=== PATIENT | female | born 1945 | race Caucasian/White ===

== ENCOUNTER → 2016-10-12 | Outpatient (CLI) | payer OTHER, BC ==
--- NOTE | 2016-10-12 16:49 | MA ---
Screening Digital Mammogram With iCAD Analysis Clinical Indications: Routine screening. Maternal grandmother was diagnosed with breast cancer in her 50s. The patient has had a previous benign breast biopsy. Technique: Standard cephalocaudal and mediolateral oblique projections are obtained. The examination is processed by the iCAD computer-aided detection system. Comparison: April 2016, October 2015, September 2014, August 2013, July 2013. Breast density: Type C; Heterogeneously dense. Findings: CAD was reviewed. There are no masses, suspicious calcifications or other signs of malignan cy. There has been no significant change in the appearance of either breast. Vascular calcifications are noted. Impression: Negative mammogram. BI-RADS 1. Recommendation: Routine screening in one year, as long as physical examination is benign, in this pat ient with heterogeneously dense breast parenchyma. [facility] will send a result letter to the patient. Dense breast parenchyma diminishes mammographic sensitivity. Negative mammography should not preclude additional workup of a clinically suspicious finding. The patient's information is entered into a reminder system with a target due date for her next mammo gram.
== END ==
LOC: BMCIMAGING 14:16
DX: Z12.31 Encounter for screening mammogram for malignant neoplasm of breast (principal); Z80.3 Family history of malignant neoplasm of breast
CPT/HCPCS: G0202

== ENCOUNTER → 2017-10-13 | Outpatient (CLI) | payer OTHER, BC | LOC: BMCIMAGING 13:18 | PROVIDERS: ATTEND Internal Medicine | DX: Z12.31 Encounter for screening mammogram for malignant neoplasm of breast (principal) ==

== ENCOUNTER → 2017-10-19 | Outpatient (CLI) | payer OTHER, BC | LOC: BMCIMAGING 09:49 | PROVIDERS: ATTEND Internal Medicine | DX: R92.8 Other abnormal and inconclusive findings on diagnostic imaging of breast (principal) ==

== ENCOUNTER → 2017-11-11 | Outpatient (CLI) | payer OTHER, BC | LOC: BMCIMAGING 07:59 | PROVIDERS: ATTEND Internal Medicine Critical Care Medicine | DX: R06.82 Tachypnea, not elsewhere classified (principal) ==

== ENCOUNTER 2018-02-16 21:05 | Observation (INO) | payer OTHER, BC ==
[2018-02-16] MEDS ORDERED: ASPIRIN 81 MG CHEWABLE TAB PO ONE (21:17)
[2018-02-16] MEDS ORDERED: NS 500 ML IV ONE (21:17)
--- NOTE | 2018-02-16 21:25 | CPEKG ---
Heart Rate: 72 RR Interval: 833 P-R Interval: 192 QRSD Interval: 80 QT Interval: 376 QTC Interval: 412 P [place]: 58 QRS [place]: 22 T Wave [place]: 20 EKG Severity - NORMAL ECG - EKG Impression: SINUS RHYTHM Electronically Signed By: Marta Trevizo 16-Feb-2018 22:48:50
[2018-02-16 21:32] LABS: PLATELET COUNT 193 10^3/uL (150-400)
[2018-02-16 21:41] LABS: INR 1.04 (0.83-1.16); PROTIME(PATIENT) 13.8 SEC (12.0-15.0)
[2018-02-16 21:42] LABS: CREATINE KINASE 131 IU/L (0-156)
--- NOTE | 2018-02-16 22:19 | EDPHY ---
H & P Time Seen by Provider: 02/16/18 21:17 HPI/ROS: HPI Chest discomfort. 72-year-old female by private vehicle. She presents with complaint of chest discomfort which she describes as a squeezing sensation mid sternum which started at 8:47 p.m.. She reports that lasted about 25 min. When she got to the emergency department it had mostly resolved. By the time I got in to see here it had completely resolved. 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 She has had these pains but not as severe or as long lasting in the past. He told her that the next time she had such pain she is to go to the emergency department immediately and that we would probably admit her overnight. She denies any associated shortness of breath. ROS: Constitutional: No fever, no chills. No weakness. Eyes: No discharge. No changes in vision. ENT: No sore throat. No nasal congestion or rhinorrhea. Respiratory: No cough. No shortness of breath. Cardiac: As above, no palpitations. Gastrointestinal: No abdominal pain, no vomiting, no diarrhea. Genitourinary: No hematuria. No dysuria or increased frequency with urination. Musculoskeletal: No back pain. No neck pain. No myalgias or arthralgias. Skin: No rashes. Neurological: No headache. No focal weakness or altered sensation. Past medical history: She denies any significant past medical history. Social history: She is here by herself. Nonsmoker. No alcohol. Physical Exam: General Appearance: Alert, no distress. This patient is responding to questions appropriately and in full sentences. This patient appears well- hydrated and well-nourished. Eyes: Pupils equal and round no pallor or injection. No lid edema, erythema or injection. Respiratory: There are no retractions, lungs are clear to auscultation with good air movement bilaterally. Cardiovascular: Regular rate and rhythm. No murmur. Gastrointestinal: Abdomen is soft and nontender, no masses, bowel sounds normal. No focal tenderness at McBurney's point. No De Jesus sign. Neurological: Motor sensory function is grossly intact. Cranial nerves are normal. Gait is normal. Skin: Warm and dry, no rashes. Musculoskeletal: Neck is supple and nontender. Extremities are symmetrical. All joints range without pain or impingement. Psychiatric: No agitation. No depression. Database: EKG: EKG time is 9:22 p.m.; EKG shows a narrow complex normal sinus rhythm with a ventricular rate of 72. The SC, QRS, QT intervals are within normal limits. There are no ST-T wave changes indicative of ischemic or injury pattern. No evidence of right heart strain. Interpreted by me. Imaging: Chest x-ray AP portable; the cardiac mediastinal silhouette is unremarkable. No evidence of infiltrate or pneumothorax. No acute cardiopulmonary disease process noted. Interpreted by me. Procedures: Emergency department course: Vital signs reviewed and are normal. She was given 324 mg of chewed aspirin. EKG obtained and reviewed by myself. 10:20 p.m., patient re-evaluated. She remains chest pain-free. I discussed the results of her diagnostic workup in the emergency department. I explained that we would admit her overnight for serial troponins and provocative testing in the morning. She is in agreement. Hospitalist paged. 10:30 p.m., spoke with the on-call hospitalist. Patient accepted for admission. Patient admitted to telemetry observation in stable condition. Differential Diagnosis: The differential diagnosis on this patient includes but is not limited to acute coronary syndrome, esophageal spasm, musculoskeletal chest pain. Pulmonary embolism, aortic dissection unlikely. This represents a partial list of diagnoses considered. These considerations are based on history, physical exam , past history, reassessment and diagnostic testing. Smoking Status: Never smoked Constitutional: Initial Vital Signs Temperature (C) 36.8 C 02/16/18 21:13 Heart Rate 75 02/16/18 21:13 Respiratory Rate 20 02/16/18 21:13 Blood Pressure 123/77 H 02/16/18 21:13 O2 Sat (%) 99 02/16/18 21:13 O2 Delivery Mode Room Air Allergies/Adverse Reactions: No Known Allergies Allergy (Unverified 02/16/18 21:13) Medical Decision Making - Diagnostics Imaging Results: Imaging Impressions Chest X-Ray 02/16/18 21:18 Impression: Clear lungs. No acute process. - Data Points Laboratory Results: Laboratory Results 02/16/18 21:25 02/16/18 21:25 02/16/18 02/16/18 02/16/18 21:25 21:25 21:25 WBC 5.82 10^3/uL 10^3/uL (3.80-9.50) RBC 4.52 10^6/uL 10^6/uL (4.18-5.33) Hgb 13.7 g/dL g/dL (12.6-16.3) Hct 42.8 % % (38.0-47.0) MCV 94.7 fL fL (81.5-99.8) MCH 30.3 pg pg (27.9-34.1) MCHC 32.0 g/dL L g/dL (32.4-36.7) RDW 12.5 % % (11.5-15.2) Plt Count 193 10^3/uL 10^3/uL (150-400) MPV 10.7 fL fL (8.7-11.7) Neut % (Auto) 44.7 % % (39.3-74.2) Lymph % (Auto) 39.9 % % (15.0-45.0) [place] % (Auto) 10.3 % % (4.5-13.0) Eos % (Auto) 3.8 % % (0.6-7.6) Baso % (Auto) 1.0 % % (0.3-1.7) Nucleat RBC Rel Count 0.0 % % (0.0-0.2) Absolute Neuts (auto) 2.60 10^3/uL 10^3/uL (1.70-6.50) Absolute Lymphs (auto) 2.32 10^3/uL 10^3/uL (1.00-3.00) Absolute Monos (auto) 0.60 10^3/uL 10^3/uL (0.30-0.80) Absolute Eos (auto) 0.22 10^3/uL 10^3/uL (0.03-0.40) Absolute Basos (auto) 0.06 10^3/uL 10^3/uL (0.02-0.10) Absolute Nucleated RBC 0.00 10^3/uL 10^3/uL (0-0.01) Immature Gran % 0.3 % % (0.0-1.1) Immature Gran # 0.02 10^3/uL 10^3/uL (0.00-0.10) PT 13.8 SEC SEC (12.0-15.0) INR 1.04 (0.83-1.16) APTT 31.4 SEC SEC (23.0-38.0) D-Dimer 0.27 ug/mLFEU ug/mLFEU (0.00-0.50) Sodium 140 mEq/L mEq/L (135-145) Potassium 4.8 mEq/L mEq/L (3.3-5.0) Chloride 103 mEq/L mEq/L (97-110) Carbon Dioxide 27 mEq/l mEq/l (22-31) Anion Gap 10 mEq/L mEq/L (8-16) BUN 29 mg/dL H mg/dL (7-23) Creatinine 1.1 mg/dL H mg/dL (0.6-1.0) Estimated GFR 49 Glucose 81 mg/dL mg/dL (70-100) Calcium 9.4 mg/dL mg/dL (8.5-10.4) Total Bilirubin 0.5 mg/dL mg/dL (0.1-1.4) Conjugated Bilirubin 0.4 mg/dL mg/dL (0.0-0.5) Unconjugated Bilirubin 0.1 mg/dL mg/dL (0.0-1.1) AST 25 IU/L IU/L (14-46) ALT 31 IU/L IU/L (9-52) Alkaline Phosphatase 70 IU/L IU/L (38-126) Creatine Kinase 131 IU/L IU/L (0-156) CK-MB (CK-2) Fraction 1.94 ng/mL ng/mL (0.00-3.19) Troponin I < 0.012 ng/mL ng/mL (0.000-0.034) Total Protein 6.9 g/dL g/dL (6.3-8.2) Albumin 4.1 g/dL g/dL (3.5-5.0) Lipase 179 IU/L IU/L (23-300) Medications Given: Discontinued Medications Aspirin (Aspirin) 324 mg PO EDNOW ONE Stop: 02/16/18 21:18 Last Admin: 02/16/18 21:31 Dose: 324 mg Sodium Chloride (Ns) 500 mls @ 1,000 mls/hr IV EDNOW ONE PRN Reason: Protocol Stop: 02/16/18 21:46 Last Admin: 02/16/18 21:31 Dose: 500 mls Departure - Departure Disposition: [facility] Inpatient Acute Clinical Impression: Chest pain Referrals: Mary Hernandez MD [Primary Care Provider] - As per Instructions
[2018-02-16] MEDS ORDERED: ACETAMINOPHEN 325 MG TAB PO PRN (23:28)
[2018-02-16] MEDS ORDERED: HYDROCODONE/APAP 5/325 TAB PO PRN (23:28)
[2018-02-16] MEDS ORDERED: ONDANSETRON 4 MG/2 ML VIAL IVP PRN (23:28)
[2018-02-16] MEDS ORDERED: NITROGLYCERIN 0.4 MG BTL SL PRN (23:31)
[2018-02-17 03:55] VITALS: BP 149/91
--- NOTE | 2018-02-17 04:06 | GHP ---
[f rep st] HISTORY AND PHYSICAL DATE OF ADMISSION: 02/16/2018 PRIMARY CARE PHYSICIAN: Dr. Mary Hernandez. SOURCE: Patient provides history, appears reliable. Her EMR was reviewed and case discussed with ED provider. CHIEF COMPLAINT: Chest pain. HISTORY OF PRESENT ILLNESS: This is a very pleasant 72-year-old female with past medical history significant for hypothyroidism, hyperlipidemia, hypertension who presents to the emergency department today with complaints of squeezing mid substernal pressure that started approximately 8:47 p.m. The patient drove herself to the emergency department and her chest pain resolved en route. The patient reports that associated with this chest pain, she felt a little flushed but did not have any diaphoresis. She denies any associated nausea or vomiting. No shortness of breath, no lightheadedness. The patient without any history of lower extremity edema, orthopnea, or PND. The patient does have a family history significant for mother with a history of WA in her early 60s, I believe 62. She is not familiar with her father or his history. The patient reports that she has been experiencing intermittent substernal chest squeezing type pain off and on intermittently for the past several years. The patient has had several stress tests in 2016 and again in 2017 that she reports were all normal. She does have a history of valvular heart disease but cannot recall which valves are affected. She is followed by Dr. Marcos and he advised her to go to the emergency department whenever she should have episodes of chest pain for evaluation. REVIEW OF SYSTEMS: Negative except as noted above. ALLERGIES: No known drug allergies. HOME MEDICATIONS: Levothyroxine, pravastatin, and lisinopril. PAST MEDICAL HISTORY: Significant for HTN, hypothyroidism, HLD, valvular heart disease. PAST SURGICAL HISTORY: Significant for tonsillectomy, adenoidectomy in her youth. FAMILY HISTORY: Mother with history of WA at age 62. SOCIAL HISTORY: Patient denies any tobacco or drugs. She does drink a rare glass of wine intermittently. No illicit drugs. Patient is , lives with her . She has good support from daughter in town. 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 The patient reports that she is quite active. She participates in mixed martial arts dance groups for 1 hour each week. She also participates in hiking and is active with her grandchildren. CODE STATUS: Full. PHYSICAL EXAMINATION: VITAL SIGNS: Upon arrival to the emergency department, blood pressure 123/77, heart rate 75, respiratory rate 20, O2 saturation 99% on room air, temperature 36.8. Current vitals available: Blood pressure 144/91, heart rate 76, respiratory rate 16, O2 saturation 99% on room air, temperature 36.6. GENERAL: No acute distress. Very pleasant adult female who is lying quietly in bed, appears slightly younger than stated age. HEAD: Normocephalic , atraumatic. EYES: Extraocular muscles grossly intact. Pupils equal, round, react to light bilaterally and symmetric. No scleral icterus or conjunctival injection. ENT: Mucous membranes appear moist. No oropharyngeal erythema or exudates. Dentition intact. No nasal discharge. NECK: Supple, trachea midline. CV: Regular rate and rhythm. No murmurs, rubs, or gallops appreciated. RESPIRATORY: Unlabored breathing. Lungs are clear to auscultation bilaterally. No wheezes, rales, or rhonchi appreciated. ABDOMEN: Positive bowel sounds. Soft, nontender to palpation. No rebound, guarding, or masses appreciated. : No suprapubic tenderness to palpation. No Harrison catheter in place. EXTREMITIES: No cyanosis, clubbing, or edema appreciated. Patient with 2+ pedal pulses. NEURO: Grossly nonfocal. Moves all extremities. Sits up independently. PSYCH: Patient awake, alert, and oriented x4. Thought process, content and questions are all appropriate. LABORATORY STUDIES: 1. WBC 5.82, hemoglobin and hematocrit 13.7 and 42.8, MCV 94.7, platelet count 193, no bands. Sodium is 142, potassium 4.8, chloride 103, CO2 27, anion gap 10 , BUN 29, creatinine 1.1, GFR 49, glucose 81. Calcium 9.4, total bilirubin 0.5 , ALT 31, AST 25, alkaline phosphatase 73. CK 131, CK-MB 1.94. Four troponins negative. Total protein 6.9, albumin 4.1, lipase 179. PT 13.8, INR 1.04, PTT 31.4. D-dimer 0.27. 2. EKG reviewed myself showing normal sinus rhythm in the 70s, QTc is 400. There is a single T-wave inversion in lead 3, otherwise normal sinus in all other leads. No acute ST elevations. 3. Chest x-ray: Image and report was reviewed myself as clear. ASSESSMENT AND PLAN: A very pleasant 72-year-old female with past medical history significant for hypertension, hyperlipidemia, and hypothyroidism who presents to the emergency department with complaints of squeezing substernal chest pressure that resolved prior to arrival. 1. Chest pain: Differential diagnosis including angina versus reflux versus less likely pulmonary embolus or esophageal spasm versus musculoskeletal. The patient currently asymptomatic. Her EKG and troponin are negative. She has had stress tests yearly for the past 2 years and she has a followup appointment with Dr. Marcos in March. The patient desires to be ruled out for active WA and then discharged with followup with Dr. Marcos. I did review with the patient that we could offer her inpatient stress testing to ensure she is risk stratified given that this episode is slightly different from her previous, however, if her EKG and troponin appear to be negative, that she has outpatient followup scheduled already with [facility]. The patient declined and would prefer to rule out and to be discharged home. She does agree to return to the emergency department if her chest pain should return. Patient's heart score is 4 for history of hypertension, hyperlipidemia, family history, and her age. Reviewed with the patient she does have risk factors for coronary artery disease. 2. Hyperlipidemia: Patient is already on statin therapy. We will obtain a lipid panel this morning along with cardiac enzymes. 3. Renal insufficiency: Appears to be chronic. The patient's previous renal panel available for review in the system appears to be stable at 1.1 with a GFR of 49. 4. Hypothyroidism: Resume patient's levothyroxine replacement at discharge. 5. Valvular heart disease: Again, patient has had previous echocardiograms. No signs or symptoms of congestive heart failure. The patient has a followup scheduled with Dr. Marcos in March. 6. Fluid, electrolytes, nutrition: Saline lock IV. Patient will be n.p.o. after midnight except for medications. Electrolytes do not requiring replacement this time. 7. Prophylaxis: Sequential compression devices and early ambulation will be encouraged. Hold off on anticoagulation unless patient should stay additional day with abnormal labs or EKG in the morning. 8. Code status: Full. 9. Disposition: Patient admitted to observation status on the PCU floor for close cardiac monitoring pending further workup. /[id number]/MODL MTDD
[2018-02-17 04:27] LABS: CREATINE KINASE 93 IU/L (0-156)
--- NOTE | 2018-02-17 05:48 | CPEKG ---
Heart Rate: 63 RR Interval: 952 P-R Interval: 212 QRSD Interval: 82 QT Interval: 412 QTC Interval: 422 P [place]: 59 QRS [place]: 16 T Wave [place]: 36 EKG Severity - NORMAL ECG - EKG Impression: SINUS RHYTHM Electronically Signed By: Jere Gomez 17-Feb-2018 07:38:04
--- NOTE | 2018-02-19 08:17 | GDS ---
[f rep st] DISCHARGE SUMMARY DISCHARGE DIAGNOSES: 1. Atypical chest pain. 2. Hyperlipidemia, renal insufficiency. 3. Hypothyroidism. 4. Valvular heart disease. BRIEF ADMISSION HISTORY/HOSPITAL COURSE: The patient presented to the emergency department with comp laints of substernal chest pressure and pain. She has a history of intermittent chest pains; however , this episode lasted greater than 25 minutes. The patient's chest pain had improved, and nearly res olved upon arrival to the emergency department. That patient has had several stress tests in 2016 an d 2017, which she had reported to be normal. She also has a history of valvular heart disease. The patient underwent initial cardiac testing in the emergency department, with EKG and initial troponin both nondiagnostic. The patient was admitted to PCU for further monitoring and repeat testing. Afte r further discussion with the patient, she preferred to continue to keep her outpatient appointment w fabiana Marcos, which she has scheduled. I did review with the patient she has several risk factors, with elevated heart score for hyperlipidemia, hypertension, family history, and her age. The patien t acknowledged that she did have some risk factors, but given that she has several negative stress te sts, she felt comfortable with initial rule out, and followed by outpatient evaluation with Dr. Miko pagan. The patient was provided discharge instructions, and advised to continue her home medications, in cluding pravastatin, lisinopril, as well as to add a baby aspirin to her daily regimen until she can follow up with Dr. Marcos. The patient was encouraged to return to the emergency department for recu rrence of chest pressure, pain, or shortness of breath. Less than 30 minutes spent on discharge. /[id number]/MODL
== END 2018-02-17 06:39 | disposition home or self-care (01) ==
LOC: F2W 23:11
PROVIDERS: ADMIT Family Medicine; ATTEND Family Medicine
DX: R07.89 Other chest pain (principal); E78.5 Hyperlipidemia, unspecified; E03.9 Hypothyroidism, unspecified; Z82.49 Family history of ischemic heart disease and other diseases of the circulatory system; Q24.8 Other specified congenital malformations of heart; N18.9 Chronic kidney disease, unspecified
CPT/HCPCS: 71045; 93005; G0378

== ENCOUNTER → 2018-10-17 | Outpatient (CLI) | payer OTHER, BC | LOC: BMCIMAGING 13:13 | PROVIDERS: ATTEND Internal Medicine | DX: Z13.820 Encounter for screening for osteoporosis (principal); M81.0 Age-related osteoporosis without current pathological fracture; Z78.0 Asymptomatic menopausal state ==